=== PATIENT | female | born 1960 | race Caucasian/White ===

== ENCOUNTER 2022-07-24 10:34 | Emergency (ER) | payer OTHER, SELFPAY ==
[2022-07-24 10:40] VITALS: BP 163/102; PULSE 81; RESP 18; TEMP 36.7; O2SAT 98; BMI 39.7
--- NOTE | 2022-07-24 10:55 | ED.LOWEXI1 ---
HPI - Extremity Injury (Lower) General Chief Complaint: Extremity Injury, Lower Stated Complaint: LEFT LEG SWELLING Time Seen by Provider: 07/24/22 10:54 Source: patient Mode of arrival: Wheelchair Limitations: no limitations History of Present Illness HPI Narrative: pt she presents to emergency department complaining of left lower extremity pain, redness and swelling. Patient states Friday she was feeling weak and tired. She had a fever. 2 days later she noted that her left lower extremity was erythematous. She went to an urgent care and she was started on Keflex 500 mg 2 times a day. She has taken it for 3 days and has not noted any relief. She states she went to work and the swelling and redness has worsened. She no longer has fevers or chills but she has increased swelling to the left lower leg and foot is also swollen. Denies any weakness. She denies any history of thrombotic embolic disease. She denies any chest, shortness of breath. Related Data Home Medications Medication Instructions Recorded Confirmed cephalexin 500 mg capsule 500 mg PO QDAY 07/24/22 07/24/22 levothyroxine 100 mcg tablet 100 mcg PO QDAY 07/24/22 07/24/22 Previous Rx's Medication Instructions Recorded cephalexin 500 mg capsule 500 mg PO TID #10 caps 07/24/22 sulfamethoxazole 800 1 tab PO BID 10 days #20 tabs 07/24/22 mg-trimethoprim 160 mg tablet (Bactrim DS) Allergies Allergy/AdvReac Type Severity Reaction Status Date / Time No Known Drug Allergies Allergy Verified 07/24/22 10:40 Review of Systems ROS Status of ROS 10 or more systems reviewed and unremarkable except as noted in history and below Exam Narrative Exam Narrative: Nurses notes and vital signs reviewed and patient is not hypoxic. General: Nontoxic, Well-appearing and in no apparent distress. Skin: Warm, dry, no pallor noted. No Rash Head: Normocephalic, atraumatic. Neck: Supple, non-tender. Eye: Pupils are equal, round and EOMI. No scleral icterus. Ears, Nose, Mouth, and Throat: TM clear, no posterior oropharynx erythema or nasal mucosal hypertrophy, uvula is mid-line Oral mucosa is moist Cardiovascular: Regular Rate and Rhythm without murmur, gallop or rub. Respiratory: No accessory muscle use or respiratory distress. Lungs are clear to auscultation, no wheezing, rales or rhonchi Chest Wall: no tenderness Back: No midline thoracic or lumbar vertebral tenderness. No CVA tenderness Musculoskeletal: Tenderness to palpation to the left lower extremity. There is erythema from the tibial tuberosity distally to the ankle. There is diffuse edema from below the knee distally +3 nonpitting. There is no calf tenderness, no palpable cords. dp +2, capillary refill is brisk. Full range of motion. One and a half centimeters of asymmetry on the left greater than right. GI: Abdomen is soft, non-distended. Normal bowel sounds. No masses appreciated. No tenderness to palpation. No rebound, guarding, or rigidity noted. Neurological: A&O x4. No cranial nerve dysfunction observed. No truncal ataxia. Moves all extremities. Sensation intact. Psychiatric: Cooperative and interactive. Normal mood and affect. Constitutional Vital Signs - 24 hr 07/24/22 10:40 Temperature 98.0 F Pulse Rate [Monitor] 81 Respiratory Rate 18 Blood Pressure [Left Arm] 163/102 H Pulse Oximetry 98 Oxygen Delivery Method Room Air Course Vital Signs Vital signs: Vital Signs Temperature 98.0 F 07/24/22 10:40 Pulse Rate 81 07/24/22 10:40 Respiratory Rate 18 07/24/22 10:40 Blood Pressure 163/102 H 07/24/22 10:40 Pulse Oximetry 98 07/24/22 10:40 Oxygen Delivery Method Room Air 07/24/22 10:40 Temperature 98.0 F 07/24/22 10:40 Pulse Rate 81 07/24/22 10:40 Respiratory Rate 18 07/24/22 10:40 Blood Pressure 163/102 H 07/24/22 10:40 Pulse Oximetry 98 07/24/22 10:40 Oxygen Delivery Method Room Air 07/24/22 10:40 MDM - Extremity Injury (Lower) MDM Narrative Medical decision making narrative: Blood work was ordered. The patient is nontoxic. All results were discussed with patient. Venous Doppler did not show any clots at this time. Patient was given vancomycin IV. She will be discharged home on Keflex 500 mg 3 times a day and Bactrim. The patient was undermedicated she is taking the Keflex 500 mg 2 times a day. Area of erythema was marked. She is to maintain the leg elevated. She will follow up with primary care doctor. She will return with any Labs or CONCERNS.At this time the patient is without objective evidence of an acute process requiring hospitalization or inpatient management. The patient has remained hemodynamically stable. No additional indication for emergent studies at this time. I answered all questions. Discussed discharge instructions including standard anticipatory guidance and what should prompt a return to the emergency department, including if they get worse are not getting better or develops any new or concerning symptoms. I've given them specific time frame in which to follow-up, and who to follow-up with. The patient demonstrates understanding. Patient is nontoxic and stable for discharge with outpatient follow-up. This note was created with the assistance of a speech recognition program. Although the intention is to generate documents that actually reflects the content of the visit, no guarantees can be provided that every mistake has been identified and corrected by editing. Lab Data Attestation: I reviewed the patient's lab results. Discharge Plan Discharge Chief Complaint: Extremity Injury, Lower Clinical Impression: Cellulitis Patient Disposition: Home, Self-Care Time of Disposition Decision: 13:00 Condition: Good Mode of Transportation: Private Vehicle Prescriptions / Home Meds: New sulfamethoxazole-trimethoprim [Bactrim DS] 800-160 mg tablet 1 tab PO BID 10 Days Qty: 20 0RF cephalexin 500 mg capsule 500 mg PO TID Qty: 10 0RF No Action cephalexin 500 mg capsule 500 mg PO QDAY levothyroxine 100 mcg tablet 100 mcg PO QDAY Instructions: Cellulitis (ED) Stand Alone Forms: Portal Instructions Referrals: MELODY WOLFF [Primary Care Provider] - 1 week
--- NOTE | 2022-07-24 11:05 | US_ITS ---
[place] [id number] Patient Name: LAZARA MADRIGAL MRN: [id number] date: 1960 Sex: F Assigned Patient Location: ER Current Patient Location: ER Accession/Order Number: [id number] Exam Date: 07/24/2022 11:35 Report Date: 07/24/2022 12:06 At the request of: KATHLEEN VIEYRA Procedure: US venous doppler LE LT EXAMINATION: US venous doppler LE LT HISTORY: le swelling ; left lower extremity redness, swelling, pain COMPARISON: No relevant comparison available. FINDINGS: REGION: Left lower extremity THROMBI: None. COMPRESSIBILITY: Normal compressibility. FLOW: Normal waveform and antegrade flow between 5 and 20 cm/s. OTHER: None. IMPRESSION: 1. No deep vein thrombus within the left lower extremity. Electronically authenticated by: GOMEZ VALDIVIA Date: 07/24/2022 12:06
[2022-07-24 11:46] LABS: Basophils Percent Auto 0.3 % (0.2-2.0); Eosinophils Absolute Auto 0.1 10^3/uL (0.0-0.7); Eosinophils Percent Auto 0.8 % (0.9-7.0); Hematocrit 40.7 % (36.0-48.0); Immature Granulocytes Abs Auto 0.03 10^3/uL (0.00-0.03); Immature Granulocytes Pct Auto 0.4 % (0.0-0.5); Lymphocytes Absolute Auto 1.4 10^3/uL (1.2-3.8); Lymphocytes Percent Auto 19.9 % (20.5-60.0); Mean Corpuscular HGB Conc 34.4 g/dL (29.9-35.2); Mean Corpuscular Hemoglobin 30.2 pg (26.7-34.0); Mean Corpuscular Volume 87.7 fL (81.0-99.0); Mean Platelet Volume 9.3 fL (9.5-13.5); Monocytes Absolute Auto 0.7 10^3/uL (0.3-0.8); Monocytes Percent Auto 10.4 % (1.7-12.0); Neutrophils Absolute Auto 4.8 10^3/uL (1.4-6.5); Neutrophils Percent Auto 68.2 % (43.0-75.0); Platelet Count 292 10^3/uL (150-450); Red Blood Count 4.64 10^6/uL (4.20-5.40); Red Cell Distribution Width 12.9 % (11.0-15.0); White Blood Count 7.1 10^3/uL (4.0-11.0)
--- NOTE | 2022-07-24 11:55 | PC.NURSE ---
ULTRASOUND AT BEDSIDE AT THIS TIME
[2022-07-24 12:03] LABS: Carbon Dioxide 26.8 mmol/L (21.0-32.0); Chloride 101 mmol/L (98-107); Potassium 3.8 mmol/L (3.5-5.1); Sodium 136 mmol/L (136-145)
[2022-07-24 12:04] LABS: BUN Creatinine Ratio 16.8; Calcium 9.3 mg/dL (8.5-10.1); Estimated GFR (African America >60 (>=60); Estimated GFR (Non-African Ame 60 (>=60); Glucose 94 mg/dL (74-106)
[2022-07-24] MEDS: VANCOMYCIN HCL 1,500 MG in 0.9 % SODIUM CHLORIDE 500 ML 250 MG IV (12:12)
[2022-07-24 12:26] LABS: Lactate/Lactic Acid 0.8 mmol/L (0.4-2.0)
--- NOTE | 2022-07-24 13:15 | PC.NURSE ---
PT RESTING COMFORTABLY IN BED EATING SOME LUNCH, APPROVED BY DR VIEYRA. IV ANTIBIOTIC REMAINS RUNNING. DENIES ANY NEEDS CURRENTLY.
== END 2022-07-24 14:36 | disposition home or self-care (01) ==
PROVIDERS: Emergency Provider Emergency Medicine; PCP Family Medicine
DX: L03.116 Cellulitis of left lower limb (principal); Z79.890 Hormone replacement therapy
CPT/HCPCS: 36415; 80048; 83605; 85025; 93971; 96365; 96366; 99285; J3370

== ENCOUNTER 2022-07-28 09:44 | Emergency (ER) | payer OTHER, SELFPAY ==
[2022-07-28 09:53] VITALS: BP 179/90; PULSE 71; RESP 20; TEMP 36.6; O2SAT 97; BMI 36.0
--- NOTE | 2022-07-28 09:59 | ED_ITS ---
HPI - Skin/Abscess/Foreign Bdy General Chief complaint: Skin/Abscess/Foreign Body Stated complaint: LEFT LEG PAIN CELLULITIS Time Seen by Provider: 07/28/22 09:59 Source: patient Mode of arrival: walk-in History of Present Illness HPI narrative: Patient presents to emergency department complaining of left lower extremity edema and swelling. Patient was diagnosed with cellulitis last week. She was seen at an urgent care and was taking Keflex twice a day. Patient was seen and evaluated by me on Friday with the same symptoms. She had a Doppler done which was negative. She was given IV vancomycin during that visit. She was discharged home on Keflex 3 times a day and Bactrim twice a day. Patient states she has been taking it. She did go to work and Friday. She states today there is increased swelling and pain distally to the foot. She states the erythema is gotten a little bit better but she is having increased pain from the swelling. He denies any fever. He denies any fever. She states she has been out for and the foot on ice. Related Data Home Medications Medication Instructions Recorded Confirmed cephalexin 500 mg capsule 500 mg PO QDAY 07/24/22 07/28/22 levothyroxine 100 mcg tablet 100 mcg PO QDAY 07/24/22 07/28/22 Previous Rx's Medication Instructions Recorded cephalexin 500 mg capsule 500 mg PO TID #10 caps 07/24/22 sulfamethoxazole 800 1 tab PO BID 10 days #20 tabs 07/24/22 mg-trimethoprim 160 mg tablet (Bactrim DS) hydrocodone 5 mg-acetaminophen 325 1 tab PO Q6H PRN pain #10 tabs 07/28/22 mg tablet Allergies Allergy/AdvReac Type Severity Reaction Status Date / Time No Known Drug Allergies Allergy Verified 07/24/22 10:40 Review of Systems ROS Status of ROS 10 or more systems reviewed and unremarkable except as noted in history and below Exam Narrative Exam Narrative: Nurses notes and vital signs reviewed and patient is not hypoxic. General: Nontoxic, Well-appearing and in no apparent distress. Skin: Warm, dry, no pallor noted. No Rash Head: Normocephalic, atraumatic. Neck: Supple, non-tender. Eye: Pupils are equal, round and EOMI. No scleral icterus. Ears, Nose, Mouth, and Throat: TM clear, no posterior oropharynx erythema or nasal mucosal hypertrophy, uvula is mid-line Oral mucosa is moist Cardiovascular: Regular Rate and Rhythm without murmur, gallop or rub. Respiratory: No accessory muscle use or respiratory distress. Lungs are clear to auscultation, no wheezing, rales or rhonchi Chest Wall: no tenderness Back: No midline thoracic or lumbar vertebral tenderness. No CVA tenderness Musculoskeletal: normal ROM, no calf or popliteal tenderness, Erythema to the anterior tibia diffuse 3+ edema from the mid tibia distally. Small open ulceration to the posterior ankle, no exudate. GI: Abdomen is soft, non-distended. Normal bowel sounds. No masses appreciated. No tenderness to palpation. No rebound, guarding, or rigidity noted. Neurological: A&O x4. No cranial nerve dysfunction observed. No truncal ataxia. Moves all extremities. Sensation intact. Psychiatric: Cooperative and interactive. Normal mood and affect. Constitutional Vital Signs - 24 hr 07/28/22 09:53 Temperature 98 F Pulse Rate [Monitor] 71 Respiratory Rate 20 Blood Pressure [Right Arm] 179/90 H Pulse Oximetry 97 Oxygen Delivery Method Room Air Course Vital Signs Vital signs: Vital Signs Temperature 98 F 07/28/22 09:53 Pulse Rate 71 07/28/22 09:53 Respiratory Rate 20 07/28/22 09:53 Blood Pressure 179/90 H 07/28/22 09:53 Pulse Oximetry 97 07/28/22 09:53 Oxygen Delivery Method Room Air 07/28/22 09:53 Temperature 98 F 07/28/22 09:53 Pulse Rate 71 07/28/22 09:53 Respiratory Rate 20 07/28/22 09:53 Blood Pressure 179/90 H 07/28/22 09:53 Pulse Oximetry 97 07/28/22 09:53 Oxygen Delivery Method Room Air 07/28/22 09:53 MDM - Skin/Abscess/Foreign Bdy MDM Narrative Medical decision making narrative: She is nontoxic. She was given Decadron advised to keep the leg elevated. given rocephin IM. Advised to stop the ice baths. She is advised to take 2 tablets of Bactrim in the next 2 doses and continue it as usual. She is to continue taking Keflex. She is follow-up with primary care doctor in the morning. Given a prescription for [place]. At this time the patient is without objective evidence of an acute process requiring hospitalization or inpatient management. The patient has remained hemodynamically stable. No additional indication for emergent studies at this time. I answered all questions. Discussed discharge instructions including standard anticipatory guidance and what should prompt a return to the emergency department, including if they get worse are not getting better or develops any new or concerning symptoms. I've given them specific time frame in which to follow-up, and who to follow-up with. The patient demonstrates understanding. Patient is nontoxic and stable for discharge with outpatient follow-up. This note was created with the assistance of a speech recognition program. Although the intention is to generate documents that actually reflects the content of the visit, no guarantees can be provided that every mistake has been identified and corrected by editing. Medical Records Attestation: I reviewed the patient's medical records. Discharge Plan Discharge Chief Complaint: Skin/Abscess/Foreign Body Clinical Impression: Cellulitis Patient Disposition: Home, Self-Care Time of Disposition Decision: 10:26 Condition: Good Mode of Transportation: Private Vehicle Prescriptions / Home Meds: New hydrocodone-acetaminophen 5-325 mg tablet 1 tab PO Q6H PRN (Reason: pain) Qty: 10 0RF Rx Instructions: L03.90 No Action cephalexin 500 mg capsule 500 mg PO QDAY levothyroxine 100 mcg tablet 100 mcg PO QDAY sulfamethoxazole-trimethoprim [Bactrim DS] 800-160 mg tablet 1 tab PO BID 10 Days Qty: 20 0RF cephalexin 500 mg capsule 500 mg PO TID Qty: 10 0RF Instructions: Cellulitis (ED) Additional Instructions: Continue taking cephalexin. Elevate the leg. Take 2 tablets of Bactrim with the next 2 doses. then continue it as prescribed. Follow-up with primary care doctor in the morning. Return to the emergency department with any plants concerns as discussed. Stand Alone Forms: Portal Instructions Referrals: MELODY WOLFF [Primary Care Provider] - 1 week
[2022-07-28] MEDS: DEXAMETHASONE SODIUM PHOSPHATE 10 MG/ML VIAL PO (10:52)
[2022-07-28] MEDS: CEFTRIAXONE 1,000 MG, LIDOCAINE HCL/PF 2.1 ML IM (10:53)
== END 2022-07-28 11:01 | disposition home or self-care (01) ==
PROVIDERS: Emergency Provider Emergency Medicine; PCP Family Medicine
DX: L03.116 Cellulitis of left lower limb (principal); Z79.890 Hormone replacement therapy
CPT/HCPCS: 96372; 99284; J1100